=== PATIENT | female | born 1955 | race Caucasian/White ===

== ENCOUNTER 2017-07-12 11:26 | Emergency (ER) | payer OTHER ==
[~2017-07-12] VITALS: Ht 160 cm; Wt 71.5 kg
[2017-07-12 11:35] VITALS: BP 153/73; PULSE 72; RESP 18; TEMP 98.5; O2SAT 97
[2017-07-12] MEDS ORDERED: VITA10004 PO (11:42)
[2017-07-12] MEDS ORDERED: ADVA250A INH (11:42)
[2017-07-12] MEDS ORDERED: MAGN250T11 PO (11:42)
[2017-07-12] MEDS ORDERED: VENTAER INH (11:42)
[2017-07-12] MEDS ORDERED: PAXI10TA8 PO (11:42)
[2017-07-12] MEDS ORDERED: PANT40TA3 PO (11:42)
[2017-07-12] MEDS ORDERED: VITA100T65 PO (11:42)
[2017-07-12] MEDS ORDERED: CALC1TAB87 PO (11:42)
--- NOTE | 2017-07-12 11:55 | PD ---
HPI Chief Complaint: Chest Pain Time Seen by Provider: 11:51 Travel History International Travel<30 days: No Contact w/Intl Traveler<30days: No Traveled to known affect area: No History of Present Illness HPI 62-year-old female complains of dizziness and chest pain. Patient states that she is having dizziness since yesterday. Patient started having epigastric substernal chest pain today. Patient states the pain aching pain localized to the lower substernal epigastric area. Patient denies any pain radiation. Patient denies diaphoresis. Patient states that she has nausea. Patient denies any fever chills. Patient denies any coughing congestion. Patient denies history of CAD. Patient denies history hypertension, diabetes, hyperlipidemia. Patient is a nonsmoker. Patient has family history of heart disease. Patient states that she has intermittent headache for the past few months. Patient has not seen any physician for the headache. Patient states the headache is worse this morning. Patient states that the dizziness is worse with head movement. Patient denies any visual change. Denies any neck pain. Patient denies any hearing problem. PFSH Past Medical History Anxiety: Yes Depression: Yes COPD: Yes GERD: Yes Influenza Vaccination: Yes ?: Not Past Surgical History Abdominal Surgery: Yes (HERNIORRHAPHY) Gynecologic Surgery: Yes (BREAST AUGMENTATION, LUMPECTOMY) Social History Alcohol Use: Yes (RARELY) Tobacco Use: No Substance Use: No Allergies-Medications (Allergen,Severity, Reaction): Coded Allergies: No Known Allergies (Unverified , 07/12/17) Reported Meds & Prescriptions Reported Meds & Active Scripts Active Reported Magnesium Oxide 250 Mg Tab 250 Mg PO DAILY Calcium 600 with Vitamin D (Calcium Carbonate-Cholecalciferol) 600-400 mg-Unit Tab 1 Tab PO DAILY Vitamin E 100 Unit Tab 100 Units PO DAILY Vitamin B12 Tr (Cyanocobalamin) 1,000 Mcg Tab 1,000 Mcg PO DAILY Ventolin Hfa 18 GM Inh (Albuterol Sulfate) 90 Mcg/Act Aer 2 Puff INH Q4-6H PRN Advair Diskus Inh (Fluticasone-Salmeterol Inh) 250-50 Mcg/Blist Aer 1 Puff INH BID Rinse mouth after use. Pantoprazole (Pantoprazole Sodium) 40 Mg Tab 40 Mg PO DAILY Paxil (Paroxetine HCl) 10 Mg Tab 20 Mg PO DAILY Review of Systems General / Constitutional: No: Fever Eyes: No: Visual changes HENT: Positive: Lightheadedness, No: Headaches Cardiovascular: Positive: Chest Pain or Discomfort Respiratory: No: Shortness of Breath Gastrointestinal: No: Abdominal Pain Genitourinary: No: Dysuria Musculoskeletal: No: Pain Skin: No Rash Neurologic: No: Weakness Psychiatric: No: Depression Endocrine: No: Polydipsia Hematologic/Lymphatic: No: Easy Bruising Physical Exam Narrative GENERAL: Well-nourished, well-developed patient. SKIN: Focused skin assessment warm/dry. HEAD: Normocephalic. EYES: No scleral icterus. No injection or drainage. NECK: Supple, trachea midline. No JVD or lymphadenopathy. CARDIOVASCULAR: Regular rate and rhythm without murmurs, gallops, or rubs. RESPIRATORY: Breath sounds equal bilaterally. No accessory muscle use. GASTROINTESTINAL: Abdomen soft, non-tender, nondistended. MUSCULOSKELETAL: No cyanosis, or edema. BACK: Nontender without obvious deformity. No CVA tenderness. Neurologic exam normal. Data Data Last Documented VS Vital Signs Date Time Temp Pulse Resp B/P (MAP) Pulse Ox O2 Delivery O2 Flow Rate FiO2 07/12/17 14:05 60 14 147/77 (100) 98 Room Air 07/12/17 11:35 98.5 Orders Orders Electrocardiogram (07/12/17 11:34) Complete Blood Count With Diff (07/12/17 11:34) Basic Metabolic Panel (Bmp) (07/12/17 11:34) Ckmb (Isoenzyme) Profile (07/12/17 11:34) Troponin I (07/12/17 11:34) Chest, Single Ap (07/12/17 11:34) Iv Access Insert/Monitor (07/12/17 11:34) Ecg Monitoring (07/12/17 11:34) Oxygen Administration (07/12/17 11:34) Oximetry (07/12/17 11:34) Aspirin (Aspirin) (07/12/17 12:00) Ct Brain W/O Iv Contrast(Rout) (07/12/17 12:47) Ed Discharge Order (07/12/17 14:13) Labs Laboratory Tests Test 07/12/17 11:45 White Blood Count 8.2 TH/MM3 Red Blood Count 4.35 MIL/MM3 Hemoglobin 12.4 GM/DL Hematocrit 38.1 % Mean Corpuscular Volume 87.6 FL Mean Corpuscular Hemoglobin 28.5 PG Mean Corpuscular Hemoglobin Concent 32.6 % Red Cell Distribution Width 12.1 % Platelet Count 251 TH/MM3 Mean Platelet Volume 7.7 FL CBC Comment AUTO DIFF Differential Total Cells Counted 100 Neutrophils % (Manual) 51 % Lymphocytes % 33 % Monocytes % 9 % Eosinophils % 7 % Neutrophils # (Manual) 4.2 TH/MM3 Differential Comment FINAL DIFF MANUAL Platelet Estimate NORMAL Platelet Morphology Comment ENLARGED Blood Urea Nitrogen 16 MG/DL Creatinine 0.73 MG/DL Random Glucose 86 MG/DL Calcium Level 8.8 MG/DL Sodium Level 138 MEQ/L Potassium Level 3.5 MEQ/L Chloride Level 105 MEQ/L Carbon Dioxide Level 24.6 MEQ/L Anion Gap 8 MEQ/L Estimat Glomerular Filtration Rate 81 ML/MIN Total Creatine Kinase 75 U/L Troponin I LESS THAN 0.02 NG/ML MDM Medical Decision Making Medical Screen Exam Complete: Yes Emergency Medical Condition: Yes Interpretation(s) 12:04 PM. EKG shows sinus rhythm nonspecific ST-T wave change. Last Impressions Chest X-Ray 07/12/17 1134 Signed Impressions: Service Date/Time: Wednesday, July 12, 2017 11:53 - CONCLUSION: Normal examination for a patient of this age. Johnny Espinoza MD 12:44 PM. CBC within normal limit. BMP within normal limit. Cardiac enzymes are normal. Differential Diagnosis Differential diagnosis including angina, MT, PE, pneumothorax, GERD, electrolyte imbalance. Narrative Course 62-year-old female with lower substernal chest pain, epigastric pain, and dizziness. Patient also complained headache. History of recurrent headache. No workup in the past. Patient was advised to be admitted to the chest pain center for workup. Patient does not want to stay. 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 Diagnosis Primary Impression: Chest pain Qualified Codes: R07.9 - Chest pain, unspecified Additional Impression: Cephalgia Qualified Codes: R51 - Headache Patient Instructions: General Instructions Additional Instructions: Aspirin daily. Take medications as needed for headache. Follow-up with personal physician. Return if worse. Med/Other Pt SpecificInfo: Prescription(s) given Scripts Meclizine (Meclizine) 25 Mg Tab 25 MG PO TID Y for VERTIGO, #21 TAB 0 Refills Prov: Herson,Hung MD 07/12/17 Zcupnukawl-Jnzdtimixacyc-Gozemtpj (Fioricet) 50-300-40 Mg Cap 1-2 CAP PO Q6H Y for HEADACHE, #30 CAP 0 Refills Prov: Otto Bains MD 07/12/17 Disposition: 01 DISCHARGE HOME Condition: Stable Otto Bains MD Jul 12, 2017 11:55
[2017-07-12 12:00] VITALS: O2SAT 96
[2017-07-12] MEDS ORDERED: ASPIRIN 325 MG TAB PO ONE (12:00)
[2017-07-12 12:04] LABS: CHLORIDE 105 MEQ/L (98-107); SODIUM (NA) 138 MEQ/L (136-145)
[2017-07-12 12:06] LABS: CALCIUM 8.8 MG/DL (8.5-10.1)
[2017-07-12 12:07] LABS: BICARBONATE 24.6 MEQ/L (21.0-32.0); BLOOD UREA NITROGEN 16 MG/DL (7-18); GLUCOSE,RANDOM 86 MG/DL (74-106)
[2017-07-12 12:10] LABS: CREATININE 0.73 MG/DL (0.50-1.00); GLOMERULAR FILTRATION RATE 81 ML/MIN (>89)
[2017-07-12 12:15] LABS: TROPONIN I LESS THAN 0.02 NG/ML (0.02-0.05)
[2017-07-12 12:20] LABS: HEMATOCRIT 38.1 % (35.0-46.0); HEMOGLOBIN 12.4 GM/DL (11.6-15.3); MEAN CELL VOLUME 87.6 FL (80.0-100.0); MEAN CORPUSCULAR HEMOGLOBIN 28.5 PG (27.0-34.0); MEAN CORPUSCULAR HGB CONC 32.6 % (32.0-36.0); MEAN PLATELET VOLUME 7.7 FL (7.0-11.0); PLATELET COUNT 251 TH/MM3 (150-450); RED BLOOD COUNT 4.35 MIL/MM3 (4.00-5.30); RED CELL DISTRIBUTION WIDTH 12.1 % (11.6-17.2); WHITE BLOOD COUNT 8.2 TH/MM3 (4.0-11.0)
--- NOTE | 2017-07-12 12:23 | RADRPT ---
EXAM DATE/TIME: 07/12/2017 11:53 [facility] COMPARISON: No previous studies available for comparison. INDICATIONS : Short of breath, dizzy MEDICAL HISTORY : asthma SURGICAL HISTORY : None. ENCOUNTER: Initial ACUITY: 1 day PAIN SCORE: 8/10 LOCATION: Bilateral chest FINDINGS: A single view of the chest demonstrates the lungs to be symmetrically aerated without evidence of mas s, infiltrate or effusion. The cardiomediastinal contours are unremarkable. Osseous structures are intact. CONCLUSION: Normal examination for a patient of this age. Johnny Espinoza MD on July 12, 2017 at 12:20 Board Certified Radiologist. This report was verified electronically.
[2017-07-12 12:35] VITALS: BP 135/68; PULSE 65; RESP 14; O2SAT 95
[2017-07-12 13:00] LABS: LYMPHOCYTES 33 % (9-44); MONOCYTES 9 % (0-8); NEUTROPHIL # MANUAL DIFF 4.2 TH/MM3 (1.8-7.7); POLYS (SEG NEUTROPHILS) 51 % (16-70)
--- NOTE | 2017-07-12 13:36 | RADRPT ---
EXAM DATE/TIME: 07/12/2017 13:25 [facility] COMPARISON: No previous studies available for comparison. INDICATIONS : Ongoing headache and dizziness, chest pain today. RADIATION DOSE: 60.94 CTDIvol (mGy) MEDICAL HISTORY : Gastroesophageal reflux disease. SURGICAL HISTORY : Breast augmentation, lumpectomy, Knee, herniorrhaphy ENCOUNTER: Initial ACUITY: 4 - 6 days PAIN SCALE: 5/10 LOCATION: cranial TECHNIQUE: Multiple contiguous axial images were obtained of the head. Using automated exposure control and adj ustment of the mA and/or kV according to patient size, radiation dose was kept as low as reasonably a chievable to obtain optimal diagnostic quality images. DICOM format image data is available electro nically for review and comparison. FINDINGS: CEREBRUM: The ventricles are normal for age. No evidence of midline shift, mass lesion, hemorrhage or acute in farction. No extra-axial fluid collections are seen. POSTERIOR FOSSA: The cerebellum and brainstem are intact. The 4th ventricle is midline. The cerebellopontine angle i s unremarkable. EXTRACRANIAL: The visualized portion of the orbits is intact. SKULL: The calvaria is intact. No evidence of skull fracture. CONCLUSION: Normal examination. Reena Pearce MD on July 12, 2017 at 13:33 Board Certified Radiologist. This report was verified electronically.
[2017-07-12 14:05] VITALS: BP 147/77; PULSE 60; RESP 14; O2SAT 98
[2017-07-12] MEDS ORDERED: MECL-62 PO (14:16)
[2017-07-12] MEDS ORDERED: BUTA1CAP PO (14:16)
--- NOTE | 2017-07-13 00:46 | EKG ---
Date Performed: 07/12/2017 Time Performed: 11:35:07 PTAGE: 62 years EKG: Sinus rhythm NORMAL ECG PREVIOUS TRACING : 04/10/2000 09.31 Since the prior tracing, there has been no significant tello DOCTOR: Clement Lara Interpretating Date/Time 07/13/2017 00:44:54
== END 2017-07-12 14:29 | disposition home or self-care (01) ==
LOC: PHED 11:26
DX: R07.9 Chest pain, unspecified (principal); R51 Headache; F32.9 Major depressive disorder, single episode, unspecified; J44.9 Chronic obstructive pulmonary disease, unspecified
CPT/HCPCS: 70450; 71045; 80048; 82550; 84484; 85007; 85027; 93005; 99285